=== PATIENT | male | born 1935 | race African-American/Black ===

== ENCOUNTER 2018-06-10 08:54 | Day surgery (SDC) | payer MEDICARE, OTHER ==
[~2018-06-10 08:54] MED LIST: AMLODIPINE5 MG PO; ASPIRIN81 MG PO; CRESTOR20 MG PO; LISINOPRIL20 MG PO; LOPRESSOR 550 MG/TAB PO; MELATONIN3 MG PO; MUCINEX600 MG PO; PRILOSEC20 MG/CAP PO; TAMSULOSIN0.4 MG PO; VITAMIN D32000 UNIT PO; XALATAN 0.005%2.5 ML OU
[2018-06-10 13:50] VITALS: BP 128/57
== END 2018-06-10 13:50 | disposition home or self-care (01) ==
LOC: ENDO 08:54
PROVIDERS: ATTEND Surgery
PROC: 0DB68ZX Excision of Stomach, Via Natural or Artificial Opening Endoscopic, Diagnostic (ICD-10-PCS; principal; 2018-06-10)
PROC: 0DJD8ZZ Inspection of Lower Intestinal Tract, Via Natural or Artificial Opening Endoscopic (ICD-10-PCS; 2018-06-10)
DX: D64.9 Anemia, unspecified (principal); K62.5 Hemorrhage of anus and rectum; Q39.8 Other congenital malformations of esophagus; Q40.2 Other specified congenital malformations of stomach; K44.9 Diaphragmatic hernia without obstruction or gangrene; K31.7 Polyp of stomach and duodenum; Q43.8 Other specified congenital malformations of intestine